=== PATIENT | female | born 1960 | race Two or more races ===

== ENCOUNTER → 2017-03-17 | Outpatient (CLI) | payer OTHER ==
[~2017-03-17] MED LIST: CARV6.252 PO; IBUP200C PO; LACT1CAP8 PO; SIMV20TA3 PO
--- NOTE | 2017-03-17 15:51 | KCIC ---
DATE: 03/17/2017. EXAM: MAMMO BENITA SCREENING BILATERAL. HISTORY: Routine mammographic screening. COMPARISON: 10/13/2014. This study was interpreted with the benefit of Computerized Aided Detection (CAD). FINDINGS: The breast parenchyma shows scattered fibroglandular densities. Breast parenchyma level B.. There is a new nodular density slightly superiorly and laterally in the right breast. See annotations. Another small irregular nodule laterally on the left CC view contains a new calcification. This may be a left elbow this is unclear. Its location on the lateral projection is unclear. BI-RADS CATEGORY: 0 INCOMPLETE: NEEDS ADDITIONAL IMAGING EVALUATION AND/OR PRIOR MAMMOGRAMS FOR COMPARISON.. RECOMMENDED FOLLOW-UP: ADD ADDITIONAL IMAGING. Spot compression of new nodules laterally bilaterally with sonography if necessary. PQRS compliance statement: Patient information was entered into a reminder system with a target due date (now) for the next mammogram. Mammography is a sensitive method for finding small breast cancers, but it does not detect them all and is not a substitute for careful clinical examination. A negative mammogram does not negate a clinically suspicious finding and should not result in delay in biopsying a clinically suspicious abnormality. "Our facility is accredited by the [employer] Mammography [employer]."
== END | disposition home or self-care (01) ==
LOC: KCIC MAMMO 14:10
PROVIDERS: ATTEND Family Medicine
DX: Z12.31 Encounter for screening mammogram for malignant neoplasm of breast (principal)
CPT/HCPCS: 77063; G0202; 77067

== ENCOUNTER → 2017-04-03 | Outpatient (CLI) | payer OTHER ==
--- NOTE | 2017-04-03 10:35 | KCIC ---
Bilateral diagnostic breast ultrasound History: Asymmetric tissue densities bilaterally on the March 17, 2017 mammogram. Sonographic examination of the breast was performed bilaterally and multiple static images were obtained. There is a hypoechoic mass in the 9:30 right breast 6.5 cm from the nipple that measures 7.3 x 7.4 x 6.9 mm. There is a hypoechoic mass in the 2:30 left breast 3.5 cm from the nipple that measures 4.7 x 6.3 x 4.7 mm. There is normal. Lymph nodes in the axilla bilaterally. Impression: There is a mass in each breast which directly corresponds with the mammographic abnormality. Recommend ultrasound guided biopsy bilaterally. These results were discussed with the patient person. The patient and the clinical service will also be contacted by the radiology staff for further instructions. BI-RADS 4: Suspicious.
--- NOTE | 2017-04-03 10:47 | KCIC ---
History: asymmetric tissue density bilaterally on the recent mammogram. The following digital mammographic additional views were obtained: Bilateral X cc view and true lateral views. . Computer aided detection was utilized with ExhbitD Second Look 7.2-H Comparison: October 13, 2014 The asymmetric tissue densities persist on additional views and there is a small mass seen in each breast on ultrasound. Impression: Small suspicious mass bilaterally. Recommend bilateral breast ultrasound guided biopsy. These results were given to the patient in person. The patient and the clinical service will also be contacted by the radiology staff for further instructions. BI-RADS 4: Suspicious. Mammography is the most sensitive method for finding small breast cancers, but it does not detect them all and is not a substitute for careful clinical examination. A negative mammogram does not negate a clinically suspicious finding and should not result in delay in biopsying a clinically suspicious abnormality. "Our facility is accredited by the [employer] Mammography Program."
== END | disposition home or self-care (01) ==
LOC: KCIC MAMMO 09:13
PROVIDERS: ATTEND Family Medicine
DX: N63.20 Unspecified lump in the left breast, unspecified quadrant (principal); N63.10 Unspecified lump in the right breast, unspecified quadrant; N64.89 Other specified disorders of breast
CPT/HCPCS: 76641; G0204; 77066

== ENCOUNTER → 2017-04-16 | Outpatient (CLI) | payer OTHER ==
[~2017-04-16] MED LIST changes: +LIDOCAINE 1% / SOD BICARB 8.4% 20 ML VIAL. IJ ONE; +LIDOCAINE 2% 20 ML VIAL. IJ ONE
--- NOTE | 2017-04-16 12:11 | RAD ---
History: Bilateral breast lesions seen on March 17, 2017 mammogram Relative benefits risks and alternatives to the procedure were discussed and written informed consent was obtained. Ultrasound guided biopsy right breast: With sterile technique, local anesthesia and ultrasound guidance, percutaneous biopsy was performed with a 14-gauge Bard needle and a single pass was obtained through the target. At 9:30. The target disappeared and was therefore likely a cyst. A marker was placed, and post procedure CC and ML views were obtained. The procedure was well tolerated. Specimens were sent to pathology. Impression: Status post ultrasound guided breast biopsy. Pathology is pending. End impression History: Mass versus cyst 2:30 left breast. Relative benefits risks and alternatives to the procedure were discussed and written informed consent was obtained. With sterile technique, local anesthesia and ultrasound guidance, percutaneous cyst aspiration was performed with a 25-gauge needle. Cloudy fluid was aspirated and the small cyst was completely drained. The procedure was well tolerated. The patient was sent home in good condition with written and verbal instructions. Impression: Status post ultrasound guided cyst aspiration.
--- NOTE | 2017-04-17 13:57 | PATHOLOGY ---
PATHOLOGY REPORT * * * * * * * * FINAL DIAGNOSIS: Right breast mass at 9:30 needle biopsy: - Tissue insufficient for diagnosis. COMMENT: Sections of the right breast mass at 9:30 needle biopsy reveal a minute segment of fibroadipose tissue and a minute segment of red blood cells. There is insufficient tissue for diagnosis. (JPM:pit; 04/17/2017) REPORT ELECTRONICALLY SIGNED BY: Reggie Vera M.D. DATE/TIME: 04/17/2017 13:57 * * * * * * * * GROSS PATHOLOGY: Received in formalin labeled "Steven Tanner, right breast," are multiple needle cores of yellow-cruz fibrofatty tissue measuring 0.2 x 0.2 x 0.1 cm in aggregate dimensions. The tissue is submitted in its entirety in cassette A1 through A3. The cold ischemic time is less than 1 minute. The total formalin fixation time is 10 hours and 52 minutes. Due to the minute nature of the specimen, it may not survive processing. (TSD; 04/16/2017) INITIAL CPT CODE(S): A; 41634 Professional services performed [place] [place] [address] Technical services performed by [facility] at [address] [place] [address], [address], [place] [address]. Dr. Cooper, [facility] Radiology [phone] SPECIMEN(S) RECEIVED: A.Right breast mass @ 9:30 CLINICAL HISTORY: Right breast mass @ 0930 PATIENT: STEVEN TANNER /AGE: 901/24/1960 (Age: 57) PATIENT #: [id number] ALT CASE #: SPECIMEN COLLECTION DATE: 04/16/2017 SPECIMEN RECEIVED DATE: 04/16/2017 [facility] - [address] [place] [address] - PHONE: [phone] * * * END OF REPORT * * *
== END | disposition home or self-care (01) ==
LOC: US 09:50
PROVIDERS: ATTEND Family Medicine
DX: R92.8 Other abnormal and inconclusive findings on diagnostic imaging of breast (principal)
CPT/HCPCS: 19000; 19081; 76942; 88300; C1713; G0206; 77065

== ENCOUNTER → 2018-03-24 | Outpatient (CLI) | payer OTHER ==
[~2018-03-24] MED LIST changes: +CARV6.2511 PO; -CARV6.252 PO; -LIDOCAINE 1% / SOD BICARB 8.4% 20 ML VIAL. IJ ONE; -LIDOCAINE 2% 20 ML VIAL. IJ ONE
--- NOTE | 2018-03-24 15:44 | KCIC ---
EXAM: Left wrist, 3 views. HISTORY: Pain. COMPARISON: None. FINDINGS: 3 views left wrist are obtained. There is no fracture, dislocation or subluxation. IMPRESSION: No acute osseous finding. Electronically signed by: Christina Johnson MD (03/24/2018 3:40 PM) [id number]
== END | disposition home or self-care (01) ==
LOC: KCIC 13:11
PROVIDERS: ATTEND Family Medicine
DX: S69.82XA Other specified injuries of left wrist, hand and finger(s), initial encounter (principal); X58.XXXA Exposure to other specified factors, initial encounter; Y93.89 Activity, other specified; Y92.89 Other specified places as the place of occurrence of the external cause; Y99.8 Other external cause status
CPT/HCPCS: 73110

== ENCOUNTER → 2019-02-04 | Outpatient (CLI) | payer OTHER ==
[2019-02-04 12:10] LABS: ALBUMIN 3.9 g/dL (3.4-5.0); DIRECT BILIRUBIN 0.1 mg/dL (0.0-0.2); TOTAL BILIRUBIN 0.5 mg/dL (0.2-1.0); TOTAL PROTEIN 7.7 g/dL (6.4-8.2)
== END | disposition home or self-care (01) ==
LOC: LAB 11:27
PROVIDERS: ATTEND Internal Medicine Rheumatology
DX: B35.1 Tinea unguium (principal)
CPT/HCPCS: 36415; 80076

== ENCOUNTER 2020-11-14 13:25 | Emergency (ER) | payer OTHER ==
[~2020-11-14] VITALS: Ht 172.7 cm; Wt 108.0 kg
[~2020-11-14 13:25] MED LIST changes: +SIMV20TA18 PO; -SIMV20TA3 PO
[2020-11-14] MEDS ORDERED: MORPHINE SULFATE 10 MG/ML VIAL. IV ONE ×3 (14:15→16:15)
[2020-11-14] MEDS ORDERED: KETOROLAC 30 MG/ML VIAL. IVP ONE (14:15)
[2020-11-14] MEDS ORDERED: IV NORMAL SALINE 1000ML BAG 1,000 ML IV ONE (14:15)
[2020-11-14] MEDS ORDERED: ONDANSETRON PF 4 MG/2 ML VIAL. IVP ONE (14:30)
[2020-11-14 14:32] LABS: BASO # 0.1 x10^3/uL (0.0-0.2); BASO % 1 % (0-3); EOS # 0.1 x10^3/uL (0.0-0.7); EOS % 1 % (0-3); HEMATOCRIT 47.5 % (36.0-47.0); HEMOGLOBIN 15.9 g/dL (12.0-15.5); LYMPH # 1.2 x10^3/uL (1.0-4.8); LYMPH % 11 % (24-48); MEAN CORPUSCULAR HEMOGLOBIN 29 pg (25-35); MEAN CORPUSCULAR HGB CONC 34 g/dL (31-37); MEAN CORPUSCULAR VOLUME 85 fL (79-100); MONO # 0.5 x10^3/uL (0.0-1.1); MONO % 5 % (0-9); NEUT # 9.4 x10^3/uL (1.8-7.7); NEUT % 83 % (31-73); PLATELET COUNT 225 x10^3/uL (140-400); RED BLOOD COUNT 5.58 x10^6/uL (3.50-5.40); WHITE BLOOD COUNT 11.3 x10^3/uL (4.0-11.0)
[2020-11-14 14:48] LABS: CALCIUM 9.7 mg/dL (8.5-10.1); GFR 56.4; POTASSIUM 4.1 mmol/L (3.5-5.1)
[2020-11-14 14:55] LABS: ALBUMIN 4.1 g/dL (3.4-5.0); ALBUMIN/GLOBULIN RATIO 1.1 (1.0-1.7); TOTAL BILIRUBIN 0.5 mg/dL (0.2-1.0); TOTAL PROTEIN 7.9 g/dL (6.4-8.2)
--- NOTE | 2020-11-14 15:20 | RAD ---
Examination: CT of the abdomen pelvis without contrast HISTORY: History of right flank pain COMPARISON: 06/29/2013 TECHNIQUE: Axial CT images of the abdomen pelvis were performed without contrast. Coronal and sagitta l reformats are performed Exposure: One or more of the following individualized dose reduction techniques were utilized for thi s examination: 1. Automated exposure control 2. Adjustment of the mA and/or kV according to patient size 3. Use of iterative reconstruction technique FINDINGS: Mild bibasilar lung atelectasis. Linear atelectasis left lingula.. No evidence of free air identified in the abdomen. The evaluation of the solid organs is limited due to lack of IV contrast. The evaluation of bowel is limited due to lack of oral contrast. Moderate increased echogenicity identified in the liver likely hepatic steatosis. The spleen, adrenals grossly appears unremarkable. The gallbladder is mildly diste nded. The stomach is mildly distended. The visualized pancreas grossly appears unremarkable. The smal l bowel is nondilated. Feces and gas noted in the colon. Sigmoid colon diverticulosis. The appendix i s normal Cystic structures identified in the left kidney the largest measuring 6 3 cm similar to prior exam. Mild right-sided hydronephrosis and hydroureter identified with a 4.5 mm calculus identified at the j unction of the junction of mid one third and distal one third of the right ureter. Urinary bladder is mildly distended. Moderate degenerative changes lumbar spine. IMPRESSION: 1. 4.5 mm calculus identified at the junction of the mid one third and distal one third of the right ureter causing mild right-sided hydronephrosis and hydroureter. 2. Hepatic steatosis. 3. Sigmoid colon diverticulosis. Electronically signed by: Shady Graham MD (11/14/2020 3:18 PM) [id number]
[2020-11-14] MEDS ORDERED: oxyCODONE/APAP 10/325 1 TAB TABLET PO ONE (16:15)
--- NOTE | 2020-11-14 17:34 | ED.ADGEN ---
Past Medical History Past Medical History: No Pertinent History Past Surgical History: Hysterectomy, Other Additional Past Surgical Histo: bilateral knee Alcohol Use: None Drug Use: None General Adult EDM: Chief Complaint: FLANK PAIN HPI: HPI: Patient is a 60-year-old female who presents to the emergency room complaining of severe right flank pain. Patient states she has associated nausea and vo miting. She did have a kidney stone not long ago but states this feels higher. She states it hit her suddenly this afternoon. She denies any dysuria or hematuria. She has a urologist at . She was able to pass her last kidney stone without difficulty. Her last one was in May. She states this pain feels like a sharp contraction. It comes in waves Review of Systems: Review of Systems: Complete ROS is negative unless otherwise documented in HPI Current Medications: Current Medications Medications (Trade) Dose Ordered Sig/Ashley Start Time Stop Time Status Last Admin Dose Admin Ketorolac Tromethamine (Toradol 30mg Vial) 30 mg 1X ONCE 11/14/20 14:15 11/14/20 14:17 DC 11/14/20 14:32 30 MG Morphine Sulfate (Morphine Sulfate) 4 mg 1X ONCE 11/14/20 19:00 11/14/20 19:01 DC 11/14/20 19:07 4 MG Ondansetron HCl (Zofran) 4 mg 1X ONCE 11/14/20 14:30 11/14/20 14:31 DC 11/14/20 14:32 4 MG Oxycodone/ Acetaminophen (Percocet 10/325) 2 tab 1X ONCE 11/14/20 16:15 11/14/20 16:16 DC 11/14/20 16:33 1 TAB Sodium Chloride 1,000 ml @ 1,000 mls/hr Q1H ONCE 11/14/20 14:15 11/14/20 15:14 DC 11/14/20 14:31 1,000 MLS/HR Allergies: Allergies: Allergies Coded Allergies Type Severity Reaction Last Updated Verified No Known Drug Allergies 06/28/13 No Physical Exam: PE: General: Awake, alert, moderate distress. Well Nourished, well hydrated. Cooperative HEENT: Atraumatic, EOMI, PERRL, airway patent, moist oral mucosa Neck: Supple, trachea midline Respiratory: CTA bilaterally, normal effort, no wheezing/crackles CV: RRR, no murmur, cap refill <2 GI: Soft, nondistended, nontender, no masses MSK: No obvious deformities Skin: Warm, dry, intact Neuro: A&O x3, speech NL, sensory and motor grossly intact, no focal deficits Psych: Normal affect, normal mood, not suicidal or homicidal Current Patient Data: Labs: Laboratory Tests Test 11/14/20 14:20 11/14/20 17:30 White Blood Count 11.3 x10^3/uL (4.0-11.0) H Red Blood Count 5.58 x10^6/uL (3.50-5.40) H Hemoglobin 15.9 g/dL (12.0-15.5) H Hematocrit 47.5 % (36.0-47.0) H Mean Corpuscular Volume 85 fL (79-100) Mean Corpuscular Hemoglobin 29 pg (25-35) Mean Corpuscular Hemoglobin Concent 34 g/dL (31-37) Red Cell Distribution Width 14.0 % (11.5-14.5) Platelet Count 225 x10^3/uL (140-400) Neutrophils (%) (Auto) 83 % (31-73) H Lymphocytes (%) (Auto) 11 % (24-48) L Monocytes (%) (Auto) 5 % (0-9) Eosinophils (%) (Auto) 1 % (0-3) Basophils (%) (Auto) 1 % (0-3) Neutrophils # (Auto) 9.4 x10^3/uL (1.8-7.7) H Lymphocytes # (Auto) 1.2 x10^3/uL (1.0-4.8) Monocytes # (Auto) 0.5 x10^3/uL (0.0-1.1) Eosinophils # (Auto) 0.1 x10^3/uL (0.0-0.7) Basophils # (Auto) 0.1 x10^3/uL (0.0-0.2) Sodium Level 139 mmol/L (136-145) Potassium Level 4.1 mmol/L (3.5-5.1) Chloride Level 103 mmol/L (98-107) Carbon Dioxide Level 25 mmol/L (21-32) Anion Gap 11 (6-14) Blood Urea Nitrogen 18 mg/dL (7-20) Creatinine 1.0 mg/dL (0.6-1.0) Estimated GFR (Cockcroft-Gault) 56.4 BUN/Creatinine Ratio 18 (6-20) Glucose Level 189 mg/dL (70-99) H Calcium Level 9.7 mg/dL (8.5-10.1) Total Bilirubin 0.5 mg/dL (0.2-1.0) Aspartate Amino Transferase (AST) 36 U/L (15-37) Alanine Aminotransferase (ALT) 54 U/L (14-59) Alkaline Phosphatase 94 U/L (46-116) Total Protein 7.9 g/dL (6.4-8.2) Albumin 4.1 g/dL (3.4-5.0) Albumin/Globulin Ratio 1.1 (1.0-1.7) Urine Collection Type Unknown Urine Color Yellow Urine Clarity Clear Urine pH 5.5 (<5.0-8.0) Urine Specific [place] 1.020 (1.000-1.030) Urine Protein Negative mg/dL (NEG-TRACE) Urine Glucose (UA) Negative mg/dL (NEG) Urine Ketones (Stick) 15 mg/dL (NEG) Urine Blood Large (NEG) Urine Nitrite Negative (NEG) Urine Bilirubin Negative (NEG) Urine Urobilinogen Dipstick 0.2 mg/dL (0.2 mg/dL) Urine Leukocyte Esterase Moderate (NEG) Urine RBC 20-40 /HPF (0-2) Urine WBC 1-4 /HPF (0-4) Urine Squamous Epithelial Cells Many /LPF Urine Bacteria Few /HPF (0-FEW) Urine Mucus Mod /LPF Laboratory Tests 11/14/20 14:20 Laboratory Tests 11/14/20 14:20 Vital Signs: Vital Signs Date Time Temp Pulse Resp B/P (MAP) Pulse Ox O2 Delivery O2 Flow Rate FiO2 11/14/20 19:28 88 192/84 (120) 95 Room Air 11/14/20 19:07 18 11/14/20 14:05 97.7 97.7 EKG: EKG: [] Heart Score: C/O Chest Pain: N/A Risk Factors: Risk Factors: DM, Current or recent (<one month) smoker, HTN, HLP, family history of CAD, obesity. Risk Scores: Score 0 - 3: 2.5% MACE over next 6 weeks - Discharge Home Score 4 - 6: 20.3% MACE over next 6 weeks - Admit for Clinical Observation Score 7 - 10: 72.7% MACE over next 6 weeks - Early Invasive Strategies Radiology/Procedures: Radiology/Procedures: [] Course & Med Decision Making: Course & Med Decision Making Pertinent Labs and Imaging studies reviewed. (See chart for details) Patient is a 60 year old who presents to the Emergency Room complaining of flank pain. On exam, patient is vomiting and in moderate distress. Patient's presentation is concerning for a possible kidney stone. Patient was given morphine and Toradol for pain relief. CBC, BMP, UA were ordered to evaluate for kidney function and infection. CT abdomen and pelvis without contrast was ordered to evaluate for a kidney stone. CT shows 4 mm kidney stone. At this time, patient does not have significant infection, signs of sepsis, POLLO, or uncontrolled pain that requires admission. Patient will be treated symptomatically and referred to urology. Patient's test results and vitals while in the ED were fully reviewed and discussed with the patient. Patient is stable and at this time does not need admission to the hospital. We have discussed strict return precautions and the importance of following up with their Primary Care Physician. Patient stated understanding and was given an opportunity to ask any questions. Patient is in agreement with plan. Cheryl Disclaimer: Cheryl Disclaimer: This electronic medical record was generated, in whole or in part, using a voice recognition dictation system. Departure Departure Impression: Primary Impression: Kidney stone Disposition: HOME / SELF CARE / HOMELESS Condition: STABLE Referrals: TRUMAN GARNICA MD (PCP) Patient Instructions: Kidney Stones Scripts Sumatriptan Succinate (SUMATRIPTAN SUCCINATE) 100 Mg Tablet 1 TAB PO UD, #9 TAB 3 Refills Prov: DARRIAN RECINOS MD 11/14/20 Oxycodone/Apap 10-325 (PERCOCET 10-325 MG TABLET ) 1 Each Tablet 1 TAB PO QIDPRN PRN for PAIN MDD 4 Tablet(s) for 5 Days, #15 TAB 0 Refills Prov: DARRIAN RECINOS MD 11/14/20 DARRIAN RECINOS MD Nov 14, 2020 17:34
[2020-11-14 17:46] LABS: BILIRUBIN,URINE NEGATIVE (NEG); CLARITY,URINE CLEAR; COLOR,URINE YELLOW; NITRITE,URINE NEGATIVE (NEG); PH,URINE 5.5 (<5.0-8.0); PROTEIN,URINE NEGATIVE (NEG-TRACE); UROBILINOGEN,URINE 0.2 mg/dL (0.2 mg/dL)
[2020-11-14 17:54] LABS: BACTERIA,URINE FEW /HPF (0-FEW); RBC,URINE 20-40 /HPF (0-2)
[2020-11-14] MEDS ORDERED: OXYC1TAB22 PO (18:22)
[2020-11-14] MEDS ORDERED: SUMA100T4 PO (18:23)
[2020-11-14] MEDS ORDERED: MORPHINE SULFATE 4 MG/ML INJ. IVP ONE (19:00)
[2020-11-14 19:28] VITALS: BP 192/84
== END 2020-11-14 19:30 | disposition home or self-care (01) ==
LOC: ER 13:25
DX: N13.2 Hydronephrosis with renal and ureteral calculous obstruction (principal); Z90.710 Acquired absence of both cervix and uterus
CPT/HCPCS: 36415; 74176; 80053; 81001; 85025; 96361; 96374; 96375; 96376; 99285; J1885; J2270; J2405; J7030